=== PATIENT | female | born 1955 | race Two or more races ===

== ENCOUNTER 2022-10-29 07:51 | Outpatient (CLI) | payer OTHER | END 2022-10-29 08:06 | disposition home or self-care (01) | LOC: TOM 07:51 | PROVIDERS: ATTEND Internal Medicine | DX: C50.311 Malignant neoplasm of lower-inner quadrant of right female breast (principal) ==

== ENCOUNTER → 2022-10-31 | Outpatient (CLI) | payer OTHER | END | disposition home or self-care (01) | LOC: NUCLEAR 07:39 | PROVIDERS: ATTEND Internal Medicine | DX: C50.311 Malignant neoplasm of lower-inner quadrant of right female breast (principal) | CPT/HCPCS: 78306; A9503 ==

== ENCOUNTER 2022-11-13 11:34 | Outpatient (CLI) | payer OTHER | END 2022-11-13 11:35 | disposition home or self-care (01) | LOC: NUCLEAR 11:34 | PROVIDERS: ATTEND Internal Medicine | DX: I42.7 Cardiomyopathy due to drug and external agent (principal) | CPT/HCPCS: 78472; A9560 ==

== ENCOUNTER 2022-12-19 06:23 | Day surgery (SDC) | payer OTHER ==
[~2022-12-19] VITALS: Ht 170.2 cm; Wt 72.6 kg
[~2022-12-19 06:23] MED LIST: ANASTROZOLE1 MG PO
== END 2022-12-19 18:35 | disposition home or self-care (01) ==
LOC: CIR.AMB 06:23
PROVIDERS: ATTEND Surgery
DX: C50.311 Malignant neoplasm of lower-inner quadrant of right female breast (principal); R92.1 Mammographic calcification found on diagnostic imaging of breast; N62 Hypertrophy of breast; N64.81 Ptosis of breast; R59.0 Localized enlarged lymph nodes; Z20.822 Contact with and (suspected) exposure to COVID-19; I10 Essential (primary) hypertension; E11.9 Type 2 diabetes mellitus without complications; Z03.818 Encounter for observation for suspected exposure to other biological agents ruled out
CPT/HCPCS: 19301; 38525; 19318; 19328; 19285; A9541